=== PATIENT | female | born 1990 | race Caucasian/White ===

== ENCOUNTER 2018-10-08 11:42 | Emergency (ER) | payer OTHER ==
[~2018-10-08] VITALS: Ht 170.2 cm; Wt 72.6 kg
[2018-10-08 11:50] VITALS: BP 134/75
[2018-10-08] MEDS ORDERED: AMOXICILLIN 50500 MG PO (12:28)
== END 2018-10-08 12:46 | disposition home or self-care (01) ==
LOC: ER 11:42
DX: J02.0 Streptococcal pharyngitis (principal)